=== PATIENT | female | born 2005 | race Two or more races ===

== ENCOUNTER 2023-10-07 21:22 | Emergency (ER) | payer MEDICAID, OTHER ==
[~2023-10-07] VITALS: Ht 172.7 cm; Wt 72.7 kg
[2023-10-07 21:46] VITALS: BP 138/72; PULSE 79; RESP 20; O2SAT 99
== END 2023-10-08 01:02 | disposition left against medical advice (07) ==
LOC: ER 21:22
DX: O26.891 Other specified pregnancy related conditions, first trimester (principal); Z53.21 Procedure and treatment not carried out due to patient leaving prior to being seen by health care provider; Z3A.12 12 weeks gestation of pregnancy